=== PATIENT | female | born 1995 | race Caucasian/White ===

== ENCOUNTER → 2016-05-31 | Outpatient (CLI) | payer OTHER ==
[2016-05-31 16:10] LABS: MANUAL MICROSCOPIC REQUIRED? NO; REVIEW REQ? NO; URINE APPEARANCE CLEAR (CLEAR); URINE BILIRUBIN NEG (NEG); URINE COLOR YELLOW; URINE NITRITE POS (NEG); URINE PH 8.5 (4.5-7.5); URINE SPECIFIC GRAVITY 1.012 (1.000-1.030); UROBILINOGEN NEG (NEG)
== END | disposition home or self-care (01) ==
LOC: C.LABSPEC 15:13
PROVIDERS: ATTEND Physician Assistant
DX: R39.9 Unspecified symptoms and signs involving the genitourinary system (principal)

== ENCOUNTER → 2017-05-22 | Outpatient (CLI) | payer OTHER | END | disposition home or self-care (01) | LOC: C.LABSPEC 15:43 | PROVIDERS: ATTEND Physician Assistant | DX: Z01.419 Encounter for gynecological examination (general) (routine) without abnormal findings (principal) ==

== ENCOUNTER → 2017-05-22 | Outpatient (CLI) | payer OTHER | END | disposition home or self-care (01) | LOC: C.PAPS 11:50 | PROVIDERS: ATTEND Physician Assistant | DX: Z12.4 Encounter for screening for malignant neoplasm of cervix (principal) ==

== ENCOUNTER 2022-02-22 07:31 | Inpatient (IN) ==
[2022-02-22] MEDS ORDERED: OXYTOCIN 30 UNITS/500 ML BAG IV PRN ×3 (07:44→21:50)
[2022-02-22] MEDS ORDERED: LIDOCAINE 1% LOCAL 20 ML VIAL INFIL PRN (07:44)
[2022-02-22 08:15] LABS: Hematocrit (blood only) 32.1 % (34.1-44.9); Hemoglobin 10.9 g/dl (12.0-16.0); Mean Corpuscular Hemoglobin 29.7 pg (25.0-34.0); Mean Corpuscular Volume 87.5 fL (80.0-100.0); Mean Platelet Volume 10.7 fL (9.4-12.3); Platelet Count 206 K/uL (130-400); RDW Coefficient of Variation 13.2 % (11.5-14.5); RDW Standard Deviation 41.4 fL (36.4-46.3); Red Blood Count 3.67 M/uL (3.93-5.22); White Blood Count 8.72 K/ul (4.8-10.8)
[2022-02-22] MEDS: LACTATED RINGER'S 1,000 ML IV PRN ×4 (08:36→20:43)
--- NOTE | 2022-02-22 08:59 | History & Physical Report ---
Date of Service February 22, 2022 Assessment & Plan (1) 38 weeks gestation of : (2) IUGR (intrauterine growth restriction) affecting care of mother: (3) Velamentous insertion of umbilical cord: (4) Need for rhogam due to Rh negative mother: (5) Encounter for induction of labor: (6) Non-dilated cervix in term : Plan Admit, iv, labs. ripening balloon placed and will start pitocin. fhts categ 1. nature of induction reviewed. pt and partner denies questions. rhogam eval pp. Admission and Anticipated Discharge Date Admission Date: February 22, 2022 History of Present Illness Chief Complaint: planned induction Primary Care Provider: Arnie Spann MD 26yo at 38wks ega presents to L&D for planned induction due to IUGR. No rom, vb. +FM. No ctx. SVE yesterday c/l/h/post/med PNC c/b 1. IUGR efw 6% on 02/02 2. Velamentous cord insertion 3. Rh neg, had rhogam, eval pp 4. Obesity PNL rh neg, ri, gbs neg OBH: g1 GYH: nl paps no stds Allergies Allergy/AdvReac Type Severity Reaction Status Date / Time No Known Allergies Allergy Verified 02/21/22 10:52 Home Medications Medication Instructions Recorded Confirmed Type No Known Home Medications 02/09/22 02/21/22 History Patient History Medical History (Updated 02/22/22 @ 09:10 by Meghan Delgadillo MD, FACOG) Hx of migraines Varicella vaccination Surgical History H/O oral surgery Hx of cholecystectomy Family History Grandfather (Maternal) Heart disease Grandfather (Paternal) Esophageal cancer Denies family history of Ovarian cancer Prostate cancer Breast cancer Colorectal cancer Social History (Updated 02/22/22 @ 08:43 by Naty Tellez, SHREYA) Smoking Status: Never smoker Second Hand Exposure: No; Do You Dip or Chew Tobacco: No; Tobacco Cessation Education Requested by Patient: No Hx Alcohol Use: No Hx Substance Use: No Preferred Language: Tuvaluan Pipelaying Fitter Required: No Beliefs That Will Affect Care: None marital status: Single marital status details: venita Foster (21) [phone] Current Living Situation: Significant Other Current Living Situation Comment: JOSE ALFREDO Andrade current occupational status: employed 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 Other Information That Helps Us Care for You: No Feels Safe at Home: Yes Safety Concerns: Feels Safe At This Time Childhood Exposure to Second-Hand Smoke: No Assistive Devices: None Review of Systems as per Subjective / HPI Physical Exam Constitutional: WD/WN, vitals as above Respiratory: normal respiratory effort, lungs clear to auscultation Cardiovascular: Rate/Rhythm: regular rate and regular rhythm Gastrointestinal (Abdomen): soft gravid nt efw 5-6# Musculoskeletal: no edema nontender calves Neurologic: grossly normal Psychiatric: A+Ox3, euthymic affect Genitourinary: Manual OB Exam: + cervical dilation (closed), + cervical effacement (long) and + station (mid medium) high OB Exam Monitor Tracing: + external FHT monitor used, + external uterine monitor used (irreg), + category I (reactive) and + normal FHT variability PROCEDURE: sse cx visualized, grasped on ant lip with ring forcep, campbell through os and balloon inflated with 40cc sterile water. Spec removed, campbell taped to leg. pt tyra well. Results & Data ([facility]) Vital Signs (Past 12 Hours) Vital Signs Temp Pulse Resp BP 02/22/22 08:00 98.2 F 18 02/22/22 07:53 87 119/72 Coding Level of Care Code None Diagnoses 38 weeks gestation of Z3A.38 IUGR (intrauterine growth restriction) affecting care of mother O36.5990 Velamentous insertion of umbilical cord O43.129 Need for rhogam due to Rh negative mother Z29.13 Encounter for induction of labor Z34.90 Non-dilated cervix in term O34.40 CPT Codes Misx Procedure Codes - 05192 Placement of cervical dilator: 52987 Placement of cervical dilator ([id number])
--- NOTE | 2022-02-22 13:19 | Labor Progress Brief Note ---
Date of Service February 22, 2022 Subjective feeling some pain with ctx. Assessment & Plan (1) 38 weeks gestation of : (2) IUGR (intrauterine growth restriction) affecting care of mother: (3) Encounter for induction of labor: Plan good cx change with campbell, which fell out. now see how arom helps labor pattern. epidural if desires, she is unsure if she wants. fhts categ 1. Admission and Anticipated Discharge Date Admission Date: February 22, 2022 Physical Exam Constitutional: WD/WN, vitals as above Genitourinary: Manual OB Exam: + cervical dilation 3 cm, + cervical effacement 50%, + station -2 and + amniotic fluid (AROM) clear OB Exam Monitor Tracing: + external FHT monitor used, + external uterine monitor used (q3, pit at 11. ), + category I and + normal FHT variability Results & Data ([facility]) Vital Signs (Past 12 Hours) Vital Signs Temp Pulse Resp BP 02/22/22 08:00 98.2 F 18 02/22/22 13:08 70 117/67 02/22/22 12:31 18 02/22/22 12:31 98.2 F 18 02/22/22 12:07 61 115/73 02/22/22 11:37 58 L 112/67 02/22/22 11:07 61 115/73 02/22/22 10:36 69 112/74 02/22/22 09:37 66 110/73 02/22/22 07:55 98.2 F 02/22/22 09:07 74 116/76 02/22/22 07:53 87 119/72 Coding Level of Care Code None Diagnoses 38 weeks gestation of Z3A.38 IUGR (intrauterine growth restriction) affecting care of mother O36.5990 Encounter for induction of labor Z34.90
[2022-02-22] MEDS ORDERED: fentaNYL citrate 100 MCG/2 ML VIAL ONE (13:59)
[2022-02-22] MEDS ORDERED: BUPIVACAINE 0.25% 30 ML VIAL ONE (13:59)
[2022-02-22] MEDS ORDERED: ePHEDrine sulfate 50 MG/ML AMP ONE (13:59)
[2022-02-22] MEDS ORDERED: SODIUM CHLORIDE 0.9% INJ 10 ML VIAL ONE (13:59)
[2022-02-22] MEDS ORDERED: LIDOCAINE 2%/EPINEPHRINE 1:200,000 20 ML SDV ONE (13:59)
[2022-02-22] MEDS ORDERED: fentaNYL 2MCG/ML ROPIVACAINE 1.25MG/ML 100 ML BAG EPI ONE (14:00)
[2022-02-22] MEDS ORDERED: diphenhydrAMINE 50 MG/ML VIAL IV PRN (14:12)
[2022-02-22] MEDS ORDERED: NALOXONE HCL 0.4 MG/1 ML VIAL/CARP IV PRN (14:12)
[2022-02-22] MEDS ORDERED: fentaNYL 2MCG/ML ROPIVACAINE 1.25MG/ML 100 ML BAG EPI PRN (14:12)
[2022-02-22] MEDS ORDERED: ONDANSETRON INJ 2 MG/ML 2 ML VIAL IV PRN (14:12)
[2022-02-22] MEDS ORDERED: NALBUPHINE HCL INJ 10 MG/ML AMP IV PRN (14:12)
[2022-02-22] MEDS ORDERED: NALOXONE HCL 1 MG in SODIUM CHLORIDE 0.9% 1000ML 1,000 ML IV PRN (14:12)
[2022-02-22] MEDS ORDERED: ePHEDrine sulfate 50 MG/ML AMP IV PRN (14:12)
--- NOTE | 2022-02-22 14:14 | Anesthesiology Consultation ---
Date of Service February 22, 2022 Assessment & Plan (1) Encounter for pre-operative examination: Chart Review Chart Review: Patient NOT seen in Pre Admission Testing and Acceptable Risk for Labor Epidural Consults Requested none History Height/Weight Height: 5 ft 7 in Weight: 97.069 kg Allergies Allergy/AdvReac Type Severity Reaction Status Date / Time No Known Allergies Allergy Verified 02/21/22 10:52 Medications Home Medications Medication Instructions Recorded Confirmed Last Taken No Known Home Medications 02/09/22 02/21/22 Unknown Active Medications Generic Name Dose Route Start Last Admin Trade Name Freq PRN Reason Stop Dose Admin Lactated Ringer's 1,000 mls @ 125 mls/hr 02/22/22 07:44 02/22/22 14:09 Lr IV 02/24/22 07:43 999 mls/hr .Q8H PRN Administration L&D Protocol Protocol Oxytocin 30 units in 500 mls @ 13 mls/hr 02/22/22 09:02 02/22/22 12:30 Pitocin IV 02/24/22 09:01 0.78 units/hr .Q24H PRN 13 mls/hr Labor Induction/Augmentation Titration Protocol 0.78 UNITS/HR Past Medical History Medical History Hx of migraines Varicella vaccination Exercise / Class Metabolic Activity II 4-5 Yardwork/Stairs/Walk up hill Past Family History Family History Grandfather (Maternal) Heart disease Grandfather (Paternal) Esophageal cancer Denies family history of Ovarian cancer Prostate cancer Breast cancer Colorectal cancer Past Surgical History Surgical History H/O oral surgery Hx of cholecystectomy Past Anesthesia History No Hx of Anesthesia Complications and No Family Hx of Anesthesia Complications History of PONV No Hx of PONV and No Hx of Motion Sickness Social History Smoking Status: Never smoker Do You Dip or Chew Tobacco: No Hx Alcohol Use: No Hx Substance Use: No Physical Exam Vital Signs Last Vital Signs Temp 36.7 C 02/22/22 13:11 Pulse 78 02/22/22 14:34 Resp 18 02/22/22 12:31 BP 115/65 02/22/22 14:32 Pulse Ox 89 L 02/22/22 14:34 Testing Laboratory Results 02/22/22 07:57
--- NOTE | 2022-02-22 17:00 | Labor Progress Brief Note ---
Date of Service February 22, 2022 Subjective pt comfortable with epidural. Assessment & Plan (1) 38 weeks gestation of : (2) IUGR (intrauterine growth restriction) affecting care of mother: (3) Encounter for induction of labor: Plan good cx change, but will increase pit max to try to achieve more regular labor pattern. not much pressure of cephalic on cervix so suspect need more power. fhts categ 1. pt aware of plan and agreeable. Admission and Anticipated Discharge Date Admission Date: February 22, 2022 Physical Exam Constitutional: WD/WN, vitals as above Genitourinary: Manual OB Exam: + cervical dilation 5 cm, + cervical effacement 90% and + station -2 OB Exam Monitor Tracing: + external FHT monitor used, + external uterine monitor used (q2-4 pit a 19), + category I and + normal FHT variability Results & Data ([facility]) Vital Signs (Past 12 Hours) Vital Signs Temp Pulse Resp BP Pulse Ox 02/22/22 08:00 98.2 F 18 02/22/22 16:54 72 90 02/22/22 16:53 81 100 02/22/22 16:48 67 100 02/22/22 16:49 66 110/58 L 02/22/22 16:31 16 02/22/22 16:31 16 02/22/22 16:43 65 100 02/22/22 16:38 62 100 02/22/22 16:33 72 103/59 L 99 02/22/22 16:28 64 100 02/22/22 16:23 58 L 100 02/22/22 16:18 60 105/58 L 100 02/22/22 16:13 56 L 100 02/22/22 16:08 59 L 100 02/22/22 16:01 18 02/22/22 16:01 18 02/22/22 16:03 68 106/61 100 02/22/22 16:00 64 103/65 02/22/22 15:58 57 L 100 02/22/22 15:55 64 103/58 L 02/22/22 15:53 54 L 100 02/22/22 15:48 59 L 100 02/22/22 15:49 58 L 105/57 L 02/22/22 15:43 62 103/55 L 100 02/22/22 15:39 59 L 107/59 L 02/22/22 15:38 54 L 100 02/22/22 15:15 16 02/22/22 15:15 16 02/22/22 15:31 16 02/22/22 15:31 16 02/22/22 15:33 60 105/60 100 02/22/22 15:28 60 102/59 L 100 02/22/22 15:23 63 110/59 L 100 02/22/22 15:18 100 02/22/22 15:18 62 02/22/22 15:18 62 108/58 L 02/22/22 15:13 68 100 02/22/22 15:14 68 107/60 02/22/22 15:09 57 L 102/56 L 02/22/22 15:08 57 L 100 02/22/22 15:03 62 108/57 L 100 02/22/22 15:00 18 02/22/22 15:00 97.9 F 18 02/22/22 14:48 18 02/22/22 14:48 18 02/22/22 14:58 66 112/60 100 02/22/22 14:56 69 106/56 L 02/22/22 14:54 67 16 104/59 L 02/22/22 14:53 66 100 02/22/22 14:52 69 107/58 L 02/22/22 14:50 60 108/58 L 02/22/22 14:48 100 02/22/22 14:48 68 02/22/22 14:48 66 108/62 02/22/22 14:46 68 107/59 L 02/22/22 14:43 72 100 02/22/22 14:44 68 106/58 L 02/22/22 14:38 18 02/22/22 14:38 18 02/22/22 14:42 18 02/22/22 14:42 81 18 108/55 L 02/22/22 14:40 73 108/55 L 02/22/22 14:38 100 02/22/22 14:38 74 02/22/22 14:38 72 109/59 L 02/22/22 14:36 73 113/64 02/22/22 14:35 78 18 111/63 02/22/22 14:33 77 100 02/22/22 14:34 78 89 L 02/22/22 14:32 81 115/65 02/22/22 14:28 83 100 02/22/22 14:23 75 100 02/22/22 14:18 80 100 02/22/22 14:13 86 100 02/22/22 14:08 100 02/22/22 14:08 80 02/22/22 14:08 81 92 02/22/22 13:43 74 123/72 02/22/22 13:11 98.1 F 02/22/22 13:08 70 117/67 02/22/22 12:31 18 02/22/22 12:31 98.2 F 18 02/22/22 12:07 61 115/73 02/22/22 11:37 58 L 112/67 02/22/22 11:07 61 115/73 02/22/22 10:36 69 112/74 02/22/22 09:37 66 110/73 02/22/22 07:55 98.2 F 02/22/22 09:07 74 116/76 02/22/22 07:53 87 119/72 Coding Level of Care Code None Diagnoses 38 weeks gestation of Z3A.38 IUGR (intrauterine growth restriction) affecting care of mother O36.5990 Encounter for induction of labor Z34.90
[2022-02-22] MEDS ORDERED: NURSING L&D Epidural Breakthrough Pain Update ONE (20:48)
--- NOTE | 2022-02-22 21:27 | Delivery Summary ---
Vaginal Delivery Summary Date of Service February 22, 2022 Vaginal Delivery Summary and 2nd Degree LAC The patient dilated to complete and pushed to deliver a viable male infant Apgars 8 and 9 via over 2nd degree perineal laceration. Mouth and nose bulb suctioned at perineum. Shoulders and body delivered with ease. Infant was vigorous and crying at . Cord clamped at 30 seconds of life and infant to maternal abdomen where the cord was then doubly clamped and cut. Placenta delivered spontaneously and intact, three-vessel cord. Hemostasis achieved with dilute pitocin and uterine massage and drainage of the bladder for approximately 100 cc under sterile conditions. Laceration repaired in routine fashion with 3- 0 vicyrl. Cervix and sulci intact. EBL 300 cc. Mother and baby stable in recovery. [facility] [place] Vaginal Delivery Charge Delivery Type Details: and 2nd Degree LAC
[2022-02-22] MEDS ORDERED: OXYTOCIN 20 UNITS in LACTATED RINGER'S 1,000 ML IV SCH (21:50)
[2022-02-22] MEDS ORDERED: DIPHTHERIA/TETANUS/PERTUSSIS 0.5mL SYR/VIAL (Age 7+yrs) IM ONE (21:50)
[2022-02-22] MEDS ORDERED: bisacodyL 10 MG SUPP PR PRN (21:50)
[2022-02-22] MEDS ORDERED: HYDROCORTISONE ACETATE 25 MG SUPP PR PRN (21:50)
[2022-02-22] MEDS ORDERED: BENZOCAINE 20% AER SPR 82.5 GM CAN EXT PRN (21:50)
[2022-02-22] MEDS ORDERED: ACETAMINOPHEN 325 MG TAB PO PRN (21:50)
[2022-02-22] MEDS ORDERED: oxyCODONE/ACETAMINOPHEN 5mg/325mg TAB PO PRN (21:50)
--- NOTE | 2022-02-22 22:19 | Anesthesia Procedure Note ---
Date of Service February 22, 2022 Anesthesia Post Epidural Note Vital Signs Vital Signs: Temp Pulse Resp BP Pulse Ox 37.0 C 80 17 114/65 99 02/22/22 19:04 02/22/22 22:03 02/22/22 19:04 02/22/22 22:03 02/22/22 21:18 Pain Intensity Abdomen: Pain Intensity: 6 Notes Mental Status: alert / awake / arousable and participated in evaluation Patient Amnestic to Procedure: No Nausea / Vomiting: adequately controlled Pain: adequately controlled Airway Patency, RR, SpO2: stable & adequate BP & HR: stable & adequate Hydration State: stable & adequate Neuraxial Anesthesia: was administered and sensory block is resolving Anesthetic Complications: no major complications apparent and Pt Satisfied with anesthetic care Epidural: Removed without complications and With tip intact
[2022-02-22] MEDS: IBUPROFEN 600 MG TAB PO PRN (22:54)
[2022-02-23] MEDS: IBUPROFEN 600 MG TAB PO PRN ×5 (03:58→23:34)
--- NOTE | 2022-02-23 06:56 | Obstetrical Progress Note ---
Date of Service <Marnie Collazo MD - Last Filed: 02/23/22 07:12> February 23, 2022 Assessment & Plan <Marnie Collazo MD - Last Filed: 02/23/22 07:12> (1) care following vaginal delivery: 26 y/o at 38wks ega presented to L&D for IOL 2/2 IUGR now PPD1. Satisfactory post progress. Tolerating PO. Encourage ambulation. PNC c/b 1. IUGR efw 6% on 02/02 2. Velamentous cord insertion 3. Rh neg, had rhogam, eval pp 4. Obesity PNL rh neg, ri, gbs neg OBH: g1 GYH: nl paps no stds <Meghan Delgadillo MD, FACOG - Last Filed: 02/23/22 08:42> (1) care following vaginal delivery: Subjective <Marnie Collazo MD - Last Filed: 02/23/22 07:12> Ambulation: ambulating normally Voiding: no voiding problems Passing Gas:: Yes Diet Tolerance:: regular diet Lochia:: Small Feeding Type:: bottle feeding Physical Exam <Marnie Collazo MD - Last Filed: 02/23/22 07:12> Constitutional WD/WN, vitals as above Respiratory normal respiratory effort, lungs clear to auscultation Cardiovascular RRR, no murmur, no edema Extremities: no calf tenderness Genitourinary OB Exam Abdomen: + fundal height (@ the level of the umbilicus) Fundus: + firm Results & Data ([facility]) <Marnie Collazo MD - Last Filed: 02/23/22 07:12> Vital Signs (Past 12 Hours) Vital Signs Temp Pulse Pulse Resp BP BP Pulse Ox 02/23/22 04:20 36.6 C 69 20 115/70 99 02/23/22 00:20 37.0 C 72 20 113/70 97 02/22/22 23:33 101 H 120/56 L 02/22/22 23:18 75 116/57 L 02/22/22 23:03 80 116/57 L 02/22/22 22:48 83 113/57 L 02/22/22 22:33 71 106/55 L 02/22/22 22:18 74 106/58 L 02/22/22 22:03 80 114/65 02/22/22 21:48 89 112/56 L 02/22/22 21:34 88 116/55 L 02/22/22 21:22 92 H 118/56 L 02/22/22 21:18 79 99 02/22/22 21:13 87 97 02/22/22 21:08 94 H 100 02/22/22 21:03 89 125/71 100 02/22/22 21:01 81 91 02/22/22 20:58 93 H 100 02/22/22 20:53 77 100 02/22/22 20:48 101 H 122/70 100 02/22/22 20:43 88 100 02/22/22 20:38 78 99 02/22/22 20:34 75 119/67 02/22/22 20:33 77 99 02/22/22 20:28 77 98 02/22/22 20:23 78 100 02/22/22 20:18 86 100 02/22/22 20:19 81 117/68 02/22/22 20:13 78 100 02/22/22 20:08 75 100 02/22/22 20:05 72 116/69 02/22/22 20:03 73 99 02/22/22 19:58 79 100 02/22/22 19:53 83 100 02/22/22 19:48 78 118/70 100 02/22/22 19:43 77 100 02/22/22 19:38 79 100 02/22/22 19:33 80 100 02/22/22 19:34 84 115/73 02/22/22 19:28 91 H 100 02/22/22 19:23 115 H 100 02/22/22 19:19 113 H 125/80 02/22/22 19:18 106 H 99 02/22/22 19:16 102 H 90 02/22/22 19:13 76 100 02/22/22 19:08 89 100 02/22/22 19:03 91 H 100 02/22/22 19:04 37.0 C 76 17 128/69 02/22/22 19:01 18 02/22/22 19:01 18 02/22/22 18:58 126 H 99 02/22/22 18:56 93 H 91 O2 Del Method 02/23/22 04:20 Room Air 02/23/22 00:20 Room Air 02/22/22 23:33 02/22/22 23:18 02/22/22 23:03 02/22/22 22:48 02/22/22 22:33 02/22/22 22:18 02/22/22 22:03 02/22/22 21:48 02/22/22 21:34 02/22/22 21:22 02/22/22 21:18 02/22/22 21:13 02/22/22 21:08 02/22/22 21:03 02/22/22 21:01 02/22/22 20:58 02/22/22 20:53 02/22/22 20:48 02/22/22 20:43 02/22/22 20:38 02/22/22 20:34 02/22/22 20:33 02/22/22 20:28 02/22/22 20:23 02/22/22 20:18 02/22/22 20:19 02/22/22 20:13 02/22/22 20:08 02/22/22 20:05 02/22/22 20:03 02/22/22 19:58 02/22/22 19:53 02/22/22 19:48 02/22/22 19:43 02/22/22 19:38 02/22/22 19:33 02/22/22 19:34 02/22/22 19:28 02/22/22 19:23 02/22/22 19:19 02/22/22 19:18 02/22/22 19:16 02/22/22 19:13 02/22/22 19:08 02/22/22 19:03 02/22/22 19:04 02/22/22 19:01 02/22/22 19:01 02/22/22 18:58 02/22/22 18:56 <Meghan Delgadillo MD, FACOG - Last Filed: 02/23/22 08:42> Co-Signing Physician Notes Resident Physician Supervision Note: I was present with Dr. Collazo during the history and exam. I discussed the case with the resident and agree with the findings and plan as documented in the note. Any exceptions or clarifications are listed here: stable routine care. rh neg, baby blood type pending, ri, bottle. Documented By: Meghan Delgadillo MD, FACOG Resident Activity Tracking <Marnie Collazo MD - Last Filed: 02/23/22 07:12> Resident Involvement: Resident Care Provided Care Provided: OB Delivery
[2022-02-23] MEDS: PRENATAL VITAMIN 1 TAB PO SCH (07:55)
[2022-02-23] MEDS: DOCUSATE SODIUM 100 MG CAP PO SCH ×2 (07:55→19:55)
--- NOTE | 2022-02-24 07:44 | Obstetrical Progress Note ---
Date of Service <Marnie Collazo MD - Last Filed: 02/24/22 08:06> February 24, 2022 Assessment & Plan <Marnie Collazo MD - Last Filed: 02/24/22 08:06> (1) care following vaginal delivery: 26 y/o at 38wks ega presented to L&D for IOL 2/2 IUGR now PPD2. Satisfactory post progress. Tolerating PO. Encourage ambulation. Baby is Rh neg. Advised on breast care. PNC c/b 1. IUGR efw 6% on 02/02 2. Velamentous cord insertion 3. Rh neg, had rhogam, eval pp 4. Obesity PNL rh neg, ri, gbs neg OBH: g1 GYH: nl paps no stds <Sal Guevara MD - Last Filed: 02/26/22 08:02> (1) care following vaginal delivery: Subjective <Marnie Collazo MD - Last Filed: 02/24/22 08:06> Ambulation: ambulating normally Voiding: no voiding problems Passing Gas:: Yes Diet Tolerance:: regular diet Lochia:: Small Feeding Type:: bottle feeding Physical Exam <Marnie Collazo MD - Last Filed: 02/24/22 08:06> Constitutional WD/WN, vitals as above Respiratory normal respiratory effort, lungs clear to auscultation Cardiovascular RRR, no murmur, no edema Extremities: no calf tenderness Genitourinary OB Exam Abdomen: + fundal height (@ the level of the umbilicus) Fundus: + firm Results & Data ([facility]) <Marnie Collazo MD - Last Filed: 02/24/22 08:06> Vital Signs (Past 12 Hours) Vital Signs Temp Pulse Resp BP Pulse Ox O2 Del Method 02/23/22 22:58 37 C 89 16 108/69 96 Room Air 02/23/22 20:00 36.8 C 81 16 98/65 L 98 Room Air <Sal Guevara MD - Last Filed: 02/26/22 08:02> Co-Signing Physician Notes Patient seen with resident and agree with the above findings and plan. Stable for discharge Resident Activity Tracking <Marnie Collazo MD - Last Filed: 02/24/22 08:06> Resident Involvement: Resident Care Provided Care Provided: OB Delivery
[2022-02-24] MEDS: IBUPROFEN 600 MG TAB PO PRN (08:49)
[2022-02-24] MEDS: PRENATAL VITAMIN 1 TAB PO SCH (08:49)
[2022-02-24] MEDS: DOCUSATE SODIUM 100 MG CAP PO SCH (08:49)
== END 2022-02-24 11:45 | disposition home or self-care (01) | DRG 807 ==
LOC: 4S1 07:31 → 4E2 02-23 00:12